=== PATIENT | male | born 1980 | race Caucasian/White ===

== ENCOUNTER 2016-12-03 18:50 | Emergency (ER) | payer SELFPAY ==
[2016-12-03] MEDS ORDERED: Penicillin V Potassium 250 MG TAB ONE (19:02)
[2016-12-03] MEDS ORDERED: Amoxicillin/Potassium Clav 875 MG TAB ONE (19:05)
== END 2016-12-03 19:25 | disposition home or self-care (01) ==
LOC: NAV ERS 18:50
DX: K08.89 Other specified disorders of teeth and supporting structures (principal); I10 Essential (primary) hypertension; F17.210 Nicotine dependence, cigarettes, uncomplicated
CPT/HCPCS: 99282

== ENCOUNTER 2016-12-16 16:17 | Emergency (ER) | payer SELFPAY ==
[2016-12-16] MEDS ORDERED: Lidocaine 1% 20 ML MDV ONE (17:13)
[2016-12-16] MEDS ORDERED: Bacitracin Zinc 1 Packet ONE (18:25)
== END 2016-12-16 18:30 | disposition home or self-care (01) ==
LOC: NAV ERS 16:17
DX: S91.312A Laceration without foreign body, left foot, initial encounter (principal); F17.210 Nicotine dependence, cigarettes, uncomplicated; W25.XXXA Contact with sharp glass, initial encounter
CPT/HCPCS: 12002; J2001

== ENCOUNTER → 2017-02-09 | Emergency (ER) | payer SELFPAY ==
[~2017-02-09] MED LIST: Bupivacaine 0.5% 10 ML VIAL ONE
== END ==
LOC: NAV ERS 22:20
DX: K08.89 Other specified disorders of teeth and supporting structures (principal)
CPT/HCPCS: 64400; J3490